=== PATIENT | female | born 1990 | race Caucasian/White ===

== ENCOUNTER 2019-04-09 06:01 | Day surgery (SDC) | payer OTHER, SELFPAY | END 2019-04-09 09:59 | disposition home or self-care (01) | PROVIDERS: Family Provider Family Medicine; Visit Provider Obstetrics & Gynecology | DX: Z30.2 Encounter for sterilization (principal); Z82.49 Family history of ischemic heart disease and other diseases of the circulatory system | CPT/HCPCS: 58662; 58670; 80048; 81003; 81025; 85025; 86850; 86900; 86901; 88112; 88302; 88304; 88305; J1100; J1885; J2405; J2704; J3010; J3490 ==

== ENCOUNTER → 2020-01-26 09:36 | Outpatient (BNVA) | payer OTHER, SELFPAY | PROVIDERS: Family Provider Family Medicine; PCP Family Medicine; Visit Provider Family Medicine | DX: Z20.828 Contact with and (suspected) exposure to other viral communicable diseases (principal) | CPT/HCPCS: 87635 ==

== ENCOUNTER → 2021-01-23 15:59 | Outpatient (BNVA) | payer OTHER, SELFPAY | PROVIDERS: Family Provider Family Medicine; PCP Family Medicine; Referring Provider Family Medicine; Visit Provider Specialist | DX: M67.40 Ganglion, unspecified site (principal) | CPT/HCPCS: 73110 ==

== ENCOUNTER → 2021-04-17 08:43 | Outpatient (BNVA) | payer OTHER, SELFPAY | PROVIDERS: Family Provider Family Medicine; PCP Family Medicine; Visit Provider Specialist | DX: S93.501A Unspecified sprain of right great toe, initial encounter (principal); W19.XXXA Unspecified fall, initial encounter | CPT/HCPCS: 73630 ==

== ENCOUNTER 2023-01-17 16:11 | Emergency (ER) | payer SELFPAY ==
[2023-01-17 16:35] VITALS: BP 133/100; PULSE 112; RESP 16; TEMP 37.2; O2SAT 100; BMI 24.5
[2023-01-17 16:44] VITALS: BP 133/100; PULSE 103; RESP 18; O2SAT 100
--- NOTE | 2023-01-17 16:49 | ED_ITS ---
Documented by User: Marcial Coon DO 01/18/23 06:32 HPI - Abdominal Pain General: Chief Complaint: Abdominal Pain Stated Complaint: low abd pain n/v Time Seen by Provider: 01/17/23 16:36 Source: patient Mode of arrival: ambulatory History of Present Illness: 32-year-old female presents emergency room with acute right lower quadrant abdominal pain that began 2 days ago progressively worsening. With nausea and vomiting. Patient reports a fever overnight. She has had dark stools she denies any hematochezia. No hematemesis or coffee-ground emesis she has not used any Pepto-Bismol does not take iron regularly. MD elicited complaint: abdominal pain Onset (ago): day(s) (2) Pain Consistency: constant Location: RLQ Severity: severe Quality: sharp Exacerbating factors: movement Relieving factors: rest Associated Symptoms: Reports anorexia, bloating, change in stool character, GI cramping, dysuria, melena, nausea, poor appetite and vomiting; Denies belching, change in bowel habits, chills, coffee ground emesis, constipation, diarrhea, dyspepsia, excessive flatus, fever(s), heartburn, hematochezia, hematuria, hematemesis, fecal incontinence, loose stools, syncope and other Review of Systems Const: Denies: fever(s) or chills Card: Denies: chest pain, palpitations, irregular heart rhythm or syncope Resp: Denies: dyspnea, productive cough or non-productive cough GI: Reports: abdominal pain, nausea, vomiting, bloating, GI cramping, change in stool character and melena; Denies: hematemesis, coffee ground emesis, heartburn, diarrhea, constipation, belching, excessive flatus, fecal incontinence, change in bowel habits, hematochezia or other : Reports: dysuria; Denies: urinary frequency, urinary urgency or hematuria Skin/Breast: Denies: rash or pruritus PFSH ED PFSH: Medical History Aftercare following surgery of the genitourinary system Patient is status post laparoscopic bilateral salpingectomy for permanent sterilization and a right ovarian cystectomy 2 weeks ago. Patient denies any complications. The benign pathology report was discussed. Ganglion cyst of dorsum of left wrist Surgical History H/O exploratory laparotomy (~2011) by Dr. Ferrer History of cholecystectomy (~2007) History of surgical removal of ganglion cyst (~2006) History of tubal ligation (~04/09/19) Laparoscopic bilateral salpingectomy fulguration and a laparoscopic right ovarian cystectomy by Dr. Andrew at [facility] [place] Previous section Family History Mother Hypertension Social History Smoking and tobacco status: never smoked Alcohol intake: current Alcohol intake frequency: holidays/special occasions only Substance/Drug Use: never Physical Exam Const: GENERAL APPEARANCE: cooperative and comfortable ORIENTATION/CONSC IOUSNESS: Yes awake, Yes oriented to person, Yes oriented to place and Yes oriented to time HENMT: COMMON NORMALS: normocephalic, atraumatic and hearing grossly normal bilaterally HEAD & SCALP: normocephalic and atraumatic Resp: COMMON NORMALS: normal respiratory effort, No retractions, No use of accessory muscles and clear to auscultation bilaterally AUSCULTATION: clear to auscultation bilaterally Cardio: COMMON NORMALS: regular rate, regular rhythm and No murmurs present (Cardio) RATE: regular rate RHYTHM: regular rhythm GI: COMMON NORMALS: No hepatosplenomegaly present AUSCULTATION: Yes Hypoactive bowel sounds present PALPATION: Yes Tenderness to palpation present (GI) Details: RLQ, Yes Guarding due to palpation present (GI) in the RLQ and Yes No hepatosplenomegaly present Extremity: COMMON NORMALS: normal to inspection, capillary refill normal, no clubbing, cyanosis or edema, no calf tenderness and no pedal edema Neuro: SENSORIUM/ORIENTATION: Yes oriented to person, Yes oriented to place and Yes oriented to time Skin: COMMON NORMALS: no rashes or lesions noted GENERAL SKIN EXAM: no rashes or lesions noted Course Vital Signs: Vital signs: Vital Signs Temperature 98.9 F 01/17/23 16:35 Pulse Rate 91 01/17/23 18:12 Respiratory Rate 16 01/17/23 19:37 Blood Pressure 126/89 01/17/23 19:37 Pulse Oximetry 98 01/17/23 18:12 Oxygen Delivery Me thod Room Air 01/17/23 18:12 MDM - Abdominal Pain Medical Decision Making Care signed out to Dr. Armendariz at change of shift. See final notes for diagnosis and disposition. Patient presents here with abdominal pain CT does show an ovarian cyst she has had history of cyst looks like a possible rupture from the cyst she has some slight free fluid she has a mild colitis as well her pains improved her white count is normal we [facility] along with pain medicine she is seen Dr. Andrew in the past she has follow-up with him and return if worsening she understands agrees to plan. She has no signs of ovarian torsion Lab Data 01/17/23 16:54 01/17/23 16:54 Labs/Radiology: Radiology Impressions Abdomen/Pelvis CT 01/17/23 17:21 IMPRESSION: 1. Prior cholecystectomy. 2. Partial urinary bladder distention with mild nonspecific wall thickening which may be related to incomplete distention. 3. Approximately 2.5 cm hypodense right ovarian cyst is suggested. Small follicular cyst appearance of the left ovary. 4. Submucosal edema and/or mild wall thickening of bowel, particularly of the colon. Fluid is seen within bowel. Consider underlying inflammatory change or infection, enterocolitis 5. Rmim-fe-mvyezyfa free fluid within the dependent pelvis. This may be related to leakage from ovarian cyst and/or associated with inflammatory bowel changes. Laboratory Results WBC 11.43 10^3/uL (3.29-11.43) 01/17/23 16:54 RBC 4.40 10^6/uL (3.85-5.65) 01/17/23 16:54 Hgb 13.00 g/dL (11.27-16.99) 01/17/23 16:54 Hct 39.0 % (36-47) 01/17/23 16:54 MCV 88.6 fl (85-98) 01/17/23 16:54 MCH 29.5 pg (27-33) 01/17/23 16:54 MCHC 33.3 g/dL (30-55) 01/17/23 16:54 RDW 12.4 % (12.1-15.1) 01/17/23 16:54 Plt Count 206 10^3/cmm (157-399) 01/17/23 16:54 MPV 9.3 fL (7.4-10.4) 01/17/23 16:54 Neut % (Auto) 80.2 % 01/17/23 16:54 Lymph % (Auto) 12.9 % 01/17/23 16:54 [place] % (Auto) 5.9 % 01/17/23 16:54 Eos % (Auto) 0.4 % 01/17/23 16:54 Baso % (Auto) 0.3 % 01/17/23 16:54 Neut # (Auto) 9.17 10^3/uL (1.8-7.7) H 01/17/23 16:54 Lymph # (Auto) 1.5 10^3/uL (0.8-4.8) 01/17/23 16:54 [place] # (Auto) 0.7 10^3/uL (0.2-0.9) 01/17/23 16:54 Eos # (Auto) 0.1 10^3/uL (0.0-0.8) 01/17/23 16:54 Baso # (Auto) 0.0 10^3/uL (0.0-0.1) 01/17/23 16:54 Nucleated RBC % (auto) 0 % 01/17/23 16:54 Nucleated RBCs # 0.0 /100WBC 01/17/23 16:54 Sodium 142 mmol/L (136-145) 01/17/23 16:54 Potassium 3.9 mmol/L (3.5-5.1) 01/17/23 16:54 Chloride 105 mmol/L (98-107) 01/17/23 16:54 Carbon Dioxide 27 mmol/L (22-29) 01/17/23 16:54 Anion Gap 13.9 (5-19) 01/17/23 16:54 BUN 8 mg/dL (6-20) 01/17/23 16:54 Creatinine 0.7 mg/dL (0.5-0.9) 01/17/23 16:54 GFR Calculation 97.0 mL/min (90-130) 01/17/23 16:54 Glucose 111 mg/dL (65-115) 01/17/23 16:54 Calculated Osmolality 293 mOsm/kg (285-295) 01/17/23 16:54 Calcium 8.8 mg/dL (8.5-10.5) 01/17/23 16:54 Total Bilirubin 0.2 mg/dL (0.15-1.2) 01/17/23 16:54 AST 16 U/L (0-32) 01/17/23 16:54 ALT 20 U/L (0-33) 01/17/23 16:54 Alkaline Phosphatase 75 U/L (35-105) 01/17/23 16:54 Total Protein 7.2 g/dL (6.6-8.7) 01/17/23 16:54 Albumin 4.0 g/dL (3.5-5.2) 01/17/23 16:54 Globulin 3.2 g/dL (1.3-4.6) 01/17/23 16:54 HCG, Qual Negative (Negative) 01/17/23 16:54 Urine Color Dark yellow (Yellow) 01/17/23 17:03 Urine Appearance Sl hazy (CLEAR) A 01/17/23 17:03 Urine pH 5 (5-7) 01/17/23 17:03 Ur Specific [place] 1.025 (1.005-1.030) 01/17/23 17:03 Urine Protein Neg (Negative) 01/17/23 17:03 Urine Glucose (UA) Norm (Normal) 01/17/23 17:03 Urine Ketones Negative (Negative) 01/17/23 17:03 Urine Blood Neg (Negative) 01/17/23 17:03 Urine Nitrate Negative (Negative) 01/17/23 17:03 Urine Bilirubin Neg (Negative) 01/17/23 17:03 Urine Urobilinogen Norm mg/dL (Negative) 01/17/23 17:03 Ur Leukocyte Esterase Negative (Negative) 01/17/23 17:03 Urine RBC 0-4 /hpf (0-2) H 01/17/23 17:03 Urine WBC 0-4 /hpf (0-5) H 01/17/23 17:03 Ur Squamous Epith Cells 10-15 /hpf (0-5) H 01/17/23 17:03 Amorphous Sediment Not Reportable 01/17/23 17:03 Urine Bacteria 1+ /hpf (NONE) H 01/17/23 17:03 Urine Mucus 2+ /hpf 01/17/23 17:03 Discharge Plan Discharge Patient Disposition: Home Clinical Impression: Abdominal pain, Colitis, Ovarian cyst Condition: Stable Prescriptions: New hydrocodone-acetaminophen 5-325 mg tablet 1 tab PO Q6H PRN (Reason: pain) Qty: 14 0RF metronidazole 500 mg tablet 500 mg PO Q8H 7 Days Qty: 21 0RF Cipro 500 mg tablet 500 mg PO BID Qty: 14 0RF ondansetron 4 mg tablet,disintegrating 4 mg PO Q6H PRN (Reason: nausea and vomiting) Qty: 14 0RF No Action (DME) Cam Walker See Rx Instructions .ROUTE .MEDSUPPLY Qty: 1 0RF Rx Instructions: As directed zolpidem [Ambien CR] 6.25 mg tablet,ext release multiphase 6.25 mg PO DAILY PRN venlafaxine 150 mg capsule,extended release 24hr 150 mg PO DAILY dextroamphetamine-amphetamine [Adderall] 5 mg tablet 5 mg PO DAILY Discharge Orders: Discharge ED (Routine); Ordered 01/17/23 Ordered By: Darvin Armendariz Referrals: Gareth Andrew MD [Physician] - 4-7 days Fredrick Gaona MD [Primary Care Provider] - 1-3 days Discharge Diet: Advance as tolerated Discharge Activity: Resume usual activity Patient Instructions: Ovarian Cyst (ED), Abdominal Pain (ED), Infectious Colitis (ED), Opioid Safety, Pain Management Coding Level of Care Code ED Water Quality Technician for Chg Fwd Documented by User: Darvin Armendariz MD 01/17/23 19:43 HPI - Abdominal Pain General: Chief Complaint: Abdominal Pain Stated Complaint: low abd pain n/v Time Seen by Provider: 01/17/23 16:36 PFSH ED PFSH: Medical History Aftercare following surgery of the genitourinary system Patient is status post laparoscopic bilateral salpingectomy for permanent sterilization and a right ovarian cystectomy 2 weeks ago. Patient denies any complications. The benign pathology report was discussed. Ganglion cyst of dorsum of left wrist Surgical History H/O exploratory laparotomy (~2011) by Dr. Ferrer History of cholecystectomy (~2007) History of surgical removal of ganglion cyst (~2006) History of tubal ligation (~04/09/19) Laparoscopic bilateral salpingectomy fulguration and a laparoscopic right ovarian cystectomy by Dr. Andrew at [facility] [place] Previous section Family History Mother Hypertension Social History Smoking and tobacco status: never smoked Alcohol intake: current Alcohol intake frequency: holidays/special occasions only Substance/Drug Use: never Course Vital Signs: Vital signs: Vital Signs Temperature 98.9 F 01/17/23 16:35 Pulse Rate 91 01/17/23 18:12 Respiratory Rate 16 01/17/23 19:37 Blood Pressure 126/89 01/17/23 19:37 Pulse Oximetry 98 01/17/23 18:12 Oxygen Delivery Me thod Room Air 01/17/23 18:12 MDM - Abdominal Pain Medical Decision Making Patient presents here with abdominal pain CT does show an ovarian cyst she has had history of cyst looks like a possible rupture from the cyst she has some slight free fluid she has a mild colitis as well her pains improved her white count is normal we will place her on Cipro Flagyl along with pain medicine she is seen Dr. Andrew in the past she has follow-up with him and return if worsening she understands agrees to plan. She has no signs of ovarian torsion Medical Records I reviewed the patient's medical records. Lab Data I reviewed the patient's lab results. 01/17/23 16:54 01/17/23 16:54 Labs/Radiology: Radiology Impressions Abdomen/Pelvis CT 01/17/23 17:21 IMPRESSION: 1. Prior cholecystectomy. 2. Partial urinary bladder distention with mild nonspecific wall thickening which may be related to incomplete distention. 3. Approximately 2.5 cm hypodense right ovarian cyst is suggested. Small follicular cyst appearance of the left ovary. 4. Submucosal edema and/or mild wall thickening of bowel, particularly of the colon. Fluid is seen within bowel. Consider underlying inflammatory change or infection, enterocolitis 5. Dcrn-rv-espirduh free fluid within the dependent pelvis. This may be related to leakage from ovarian cyst and/or associated with inflammatory bowel changes. Laboratory Results WBC 11.43 10^3/uL (3.29-11.43) 01/17/23 16:54 RBC 4.40 10^6/uL (3.85-5.65) 01/17/23 16:54 Hgb 13.00 g/dL (11.27-16.99) 01/17/23 16:54 Hct 39.0 % (36-47) 01/17/23 16:54 MCV 88.6 fl (85-98) 01/17/23 16:54 MCH 29.5 pg (27-33) 01/17/23 16:54 MCHC 33.3 g/dL (30-55) 01/17/23 16:54 RDW 12.4 % (12.1-15.1) 01/17/23 16:54 Plt Count 206 10^3/cmm (157-399) 01/17/23 16:54 MPV 9.3 fL (7.4-10.4) 01/17/23 16:54 Neut % (Auto) 80.2 % 01/17/23 16:54 Lymph % (Auto) 12.9 % 01/17/23 16:54 [place] % (Auto) 5.9 % 01/17/23 16:54 Eos % (Auto) 0.4 % 01/17/23 16:54 Baso % (Auto) 0.3 % 01/17/23 16:54 Neut # (Auto) 9.17 10^3/uL (1.8-7.7) H 01/17/23 16:54 Lymph # (Auto) 1.5 10^3/uL (0.8-4.8) 01/17/23 16:54 [place] # (Auto) 0.7 10^3/uL (0.2-0.9) 01/17/23 16:54 Eos # (Auto) 0.1 10^3/uL (0.0-0.8) 01/17/23 16:54 Baso # (Auto) 0.0 10^3/uL (0.0-0.1) 01/17/23 16:54 Nucleated RBC % (auto) 0 % 01/17/23 16:54 Nucleated RBCs # 0.0 /100WBC 01/17/23 16:54 Sodium 142 mmol/L (136-145) 01/17/23 16:54 Potassium 3.9 mmol/L (3.5-5.1) 01/17/23 16:54 Chloride 105 mmol/L (98-107) 01/17/23 16:54 Carbon Dioxide 27 mmol/L (22-29) 01/17/23 16:54 Anion Gap 13.9 (5-19) 01/17/23 16:54 BUN 8 mg/dL (6-20) 01/17/23 16:54 Creatinine 0.7 mg/dL (0.5-0.9) 01/17/23 16:54 GFR Calculation 97.0 mL/min (90-130) 01/17/23 16:54 Glucose 111 mg/dL (65-115) 01/17/23 16:54 Calculated Osmolality 293 mOsm/kg (285-295) 01/17/23 16:54 Calcium 8.8 mg/dL (8.5-10.5) 01/17/23 16:54 Total Bilirubin 0.2 mg/dL (0.15-1.2) 01/17/23 16:54 AST 16 U/L (0-32) 01/17/23 16:54 ALT 20 U/L (0-33) 01/17/23 16:54 Alkaline Phosphatase 75 U/L (35-105) 01/17/23 16:54 Total Protein 7.2 g/dL (6.6-8.7) 01/17/23 16:54 Albumin 4.0 g/dL (3.5-5.2) 01/17/23 16:54 Globulin 3.2 g/dL (1.3-4.6) 01/17/23 16:54 HCG, Qual Negative (Negative) 01/17/23 16:54 Urine Color Dark yellow (Yellow) 01/17/23 17:03 Urine Appearance Sl hazy (CLEAR) A 01/17/23 17:03 Urine pH 5 (5-7) 01/17/23 17:03 Ur Specific [place] 1.025 (1.005-1.030) 01/17/23 17:03 Urine Protein Neg (Negative) 01/17/23 17:03 Urine Glucose (UA) Norm (Normal) 01/17/23 17:03 Urine Ketones Negative (Negative) 01/17/23 17:03 Urine Blood Neg (Negative) 01/17/23 17:03 Urine Nitrate Negative (Negative) 01/17/23 17:03 Urine Bilirubin Neg (Negative) 01/17/23 17:03 Urine Urobilinogen Norm mg/dL (Negative) 01/17/23 17:03 Ur Leukocyte Esterase Negative (Negative) 01/17/23 17:03 Urine RBC 0-4 /hpf (0-2) H 01/17/23 17:03 Urine WBC 0-4 /hpf (0-5) H 01/17/23 17:03 Ur Squamous Epith Cells 10-15 /hpf (0-5) H 01/17/23 17:03 Amorphous Sediment Not Reportable 01/17/23 17:03 Urine Bacteria 1+ /hpf (NONE) H 01/17/23 17:03 Urine Mucus 2+ /hpf 01/17/23 17:03 All radiology interpretation(s) finalized by discharge Discharge Plan Discharge Patient Disposition: Home Clinical Impression: Abdominal pain, Colitis, Ovarian cyst Condition: Stable Prescriptions: New hydrocodone-acetaminophen 5-325 mg tablet 1 tab PO Q6H PRN (Reason: pain) Qty: 14 0RF metronidazole 500 mg tablet 500 mg PO Q8H 7 Days Qty: 21 0RF Cipro 500 mg tablet 500 mg PO BID Qty: 14 0RF ondansetron 4 mg tablet,disintegrating 4 mg PO Q6H PRN (Reason: nausea and vomiting) Qty: 14 0RF No Action (DME) Cam Walker See Rx Instructions .ROUTE .MEDSUPPLY Qty: 1 0RF Rx Instructions: As directed zolpidem [Ambien CR] 6.25 mg tablet,ext release multiphase 6.25 mg PO DAILY PRN venlafaxine 150 mg capsule,extended release 24hr 150 mg PO DAILY dextroamphetamine-amphetamine [Adderall] 5 mg tablet 5 mg PO DAILY Discharge Orders: Discharge ED (Routine); Ordered 01/17/23 Ordered By: Darvin Armendariz Referrals: Gareth Andrew MD [Physician] - 4-7 days Roylance,Fredrick F, MD [Primary Care Provider] - 1-3 days Discharge Diet: Advance as tolerated Discharge Activity: Resume usual activity Patient Instructions: Ovarian Cyst (ED), Abdominal Pain (ED), Infectious Colitis (ED), Opioid Safety, Pain Management Coding Level of Care Code ED Water Quality Technician for Jalen Khanna
[2023-01-17 17:04] LABS: Basophils % 0.3 %; Eosinophils # 0.1 10^3/uL (0.0-0.8); Eosinophils % 0.4 %; Lymphocytes # 1.5 10^3/uL (0.8-4.8); Lymphocytes % 12.9 %; Mean Corpuscular HGB Conc 33.3 g/dL (30-55); Mean Corpuscular Hemoglobin 29.5 pg (27-33); Mean Corpuscular Volume 88.6 fl (85-98); Mean Platelet Volume 9.3 fL (7.4-10.4); Monocytes # 0.7 10^3/uL (0.2-0.9); Monocytes % 5.9 %; Neutrophils # 9.17 10^3/uL (1.8-7.7); Neutrophils % 80.2 %; Nucleated Red Blood Cells % 0 %; Platelet Count 206 10^3/cmm (157-399); Red Cell Distribution Width 12.4 % (12.1-15.1); White Blood Count 11.43 10^3/uL (3.29-11.43)
[2023-01-17 17:08] VITALS: RESP 18; O2SAT 100
[2023-01-17] MEDS: ondansetron 2 mg/ML SDV 2 mL 4 MG IVP (17:08)
[2023-01-17] MEDS: sodium chloride 0.9% 1,000 ML 999 ML IV (17:08)
[2023-01-17] MEDS: morphine 4 mg/mL SDV 1 mL IVP (17:08)
[2023-01-17 17:11] VITALS: BP 125/93; PULSE 98; RESP 18; O2SAT 100
[2023-01-17 17:18] LABS: HCG, Serum Qual Negative (Negative)
[2023-01-17 17:19] LABS: Alanine Aminotransferase 20 U/L (0-33); Alkaline Phosphatase 75 U/L (35-105); Anion Gap 13.9 (5-19); Aspartate Amino Transferase 16 U/L (0-32); Blood Urea Nitrogen 8 mg/dL (6-20); Calcium 8.8 mg/dL (8.5-10.5); Carbon Dioxide 27 mmol/L (22-29); Chloride 105 mmol/L (98-107); Globulin 3.2 g/dL (1.3-4.6); Glucose 111 mg/dL (65-115); Osmolality Calculated 293 mOsm/kg (285-295); Potassium 3.9 mmol/L (3.5-5.1); Sodium 142 mmol/L (136-145); Total Bilirubin 0.2 mg/dL (0.15-1.2); Total Protein 7.2 g/dL (6.6-8.7)
--- NOTE | 2023-01-17 17:21 | CTR_ITS ---
PROCEDURE INFORMATION: Exam: CT Abdomen And Pelvis With Contrast Exam date and time: 01/17/2023 5:38 PM Age: 32 years old Clinical indication: Abdominal pain; Generalized; Prior surgery; Surgery date: 6+ months; Surgery type: Fouzia, tubal, ; Additional info: Abd pain TECHNIQUE: Imaging protocol: Computed tomography of the abdomen and pelvis with contrast. Radiation optimization: All CT scans at this facility use at least one of these dose optimization techniques: automated exposure control; mA and/or kV adjustment per patient size (includes targeted exams where dose is matched to clinical indication); or iterative reconstruction. Contrast material: OMNI 350; Contrast volume: 100 ml; Contrast route: INTRAVENOUS (IV); REPORTING DATA: Count of CT and Cardiac NM exams in prior 12 months: This patient has received 0 known CTs and 0 known cardiac nuclear medicine studies in the 12 months prior to the current study. COMPARISON: ES surgery / GI images 04/09/2019 7:47 AM RADIATION DOSE METRICS: Total DLP (mGy-cm): 436 FINDINGS: Lungs: No infiltrate or effusion is seen within the visualized lung bases. Liver: Normal. No mass. Gallbladder and bile ducts: Prior cholecystectomy. Slight biliary prominence post cholecystectomy. Pancreas: Normal. No ductal dilation. Spleen: Normal. No splenomegaly. Adrenal glands: Normal. No mass. Kidneys and ureters: Normal. No hydronephrosis. Stomach and bowel: Fluid is seen within stomach and small bowel, as well as a portion of the colon. There is suggestion of submucosal edema and/or mild wall thickening of bowel, particularly involving the colon. No bowel obstruction. Appendix: The appendix is visualized. There is an appendicolith. No inflammatory changes are seen to indicate appendicitis. Intraperitoneal space: No free air. No ascites within the abdomen. Vasculature: Unremarkable. No abdominal aortic aneurysm. Lymph nodes: Unremarkable. No enlarged lymph nodes. Urinary bladder: Partial urinary bladder distention with mild nonspecific wall thickening. Reproductive: Approximately 2.5 cm hypodense right ovarian cyst is seen. Small follicular cysts noted of the left ovary. Jbpa-xb-wwllknqu free fluid within the cul-de-sac. Bones/joints: No acute osseous abnormality. Soft tissues: A very small periumbilical hernia fat. CT/CT abdomen pelvis w con* [id number] IMPRESSION: 1. Prior cholecystectomy. 2. Partial urinary bladder distention with mild nonspecific wall thickening which may be related to incomplete distention. 3. Approximately 2.5 cm hypodense right ovarian cyst is suggested. Small follicular cyst appearance of the left ovary. 4. Submucosal edema and/or mild wall thickening of bowel, particularly of the colon. Fluid is seen within bowel. Consider underlying inflammatory change or infection, enterocolitis 5. Dulw-xu-nfggrbcm free fluid within the dependent pelvis. This may be related to leakage from ovarian cyst and/or associated with inflammatory bowel changes.
[2023-01-17 17:26] LABS: Glucose Urine UA Norm (Normal); Ketones Urine Negative (Negative); Protein Urine Neg (Negative); Specific Gravity, Urine 1.025 (1.005-1.030); Urine Appearance SL Hazy (CLEAR); Urine Color Dark Yellow (Yellow); pH Urine 5 (5-7)
[2023-01-17 17:27] LABS: Add Urine Microscopic? YES; Bilirubin Urine Neg (Negative); Blood Urine Neg (Negative); Leukocyte Esterase Urine Negative (Negative); Nitrate Urine Negative (Negative); Urobilinogen Urine Norm (Negative)
[2023-01-17 17:30] LABS: RBC Urine 0-4 /hpf (0-2); WBC Urine 0-4 /hpf (0-5)
[2023-01-17 17:31] LABS: Add Urine Culture? No; Bacteria Urine 1+ /hpf; Mucus Urine 2+ /hpf
[2023-01-17] MEDS: iohexol 350 mg/mL 500 mL Btl (per mL) IV (17:51)
[2023-01-17 18:12] VITALS: BP 124/93; PULSE 91; RESP 18; O2SAT 98
[2023-01-17 19:37] VITALS: BP 126/89; RESP 16
== END 2023-01-17 19:38 | disposition home or self-care (01) ==
PROVIDERS: Family Medicine; Emergency Provider Emergency Medicine; Family Provider Family Medicine; PCP Family Medicine
DX: K52.9 Noninfective gastroenteritis and colitis, unspecified (principal); N83.201 Unspecified ovarian cyst, right side
CPT/HCPCS: 74177; 80053; 81001; 84703; 85025; 96374; 96375; 99285; J2270; J2405; J7030; Q9967

== ENCOUNTER 2025-01-10 08:12 | Emergency (ER) | payer OTHER, SELFPAY ==
[2025-01-10 08:16] VITALS: BP 131/99; PULSE 92; RESP 14; TEMP 36.7; O2SAT 100; BMI 25.6
--- NOTE | 2025-01-10 08:26 | CTR_ITS ---
PROCEDURE INFORMATION: Exam: CT Head Without Contrast Exam date and time: 01/10/2025 8:41 AM Age: 34 years old Clinical indication: Visual disturbance; Additional info: Pupil dilatation TECHNIQUE: Imaging protocol: Computed tomography of the head without contrast. Radiation optimization: All CT scans at this facility use at least one of these dose optimization techniques: automated exposure control; mA and/or kV adjustment per patient size (includes targeted exams where dose is matched to clinical indication); or iterative reconstruction. COMPARISON: No relevant prior studies available. RADIATION DOSE METRICS: Total DLP (mGy-cm): 954.08 FINDINGS: Brain: Normal. No hemorrhage. Unremarkable white matter. No mass effect. Cerebral ventricles: No ventriculomegaly. Paranasal sinuses: Visualized sinuses are unremarkable. No fluid levels. Mastoid air cells: Visualized mastoid air cells are well aerated. Bones: Unremarkable. No acute fracture. Soft tissues: Unremarkable. CT/CT head wo con* [id number] IMPRESSION: No acute intracranial abnormality.
--- NOTE | 2025-01-10 08:34 | ED_ITS ---
HPI - Eye Problem General: Chief complaint: Eye Problems Stated complaint: right pupil is diolated and the other is not Time Seen by Provider: 01/10/25 08:20 Source: patient Mode of arrival: ambulatory Limitations: no limitations History of Present Illness: 34-year-old female who states that today she noticed she had pupil dilation to her right eye. She states that someone else had noticed that she had no other symptoms she denies any vision changes slurred speech or weakness. She denies any headache. 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 Associated symptoms: Denies fever(s), headache(s) or neck pain Related Data Home Medications ?Medication ?Instructions ?Recorded ?Confirmed zolpidem 6.25 mg tablet,extended 6.25 mg PO DAILY PRN 05/18/19 04/17/21 release,multiphase (Ambien CR) dextroamphetamine-amphetamine 5 mg 5 mg PO DAILY 01/2304/17/21 tablet (Adderall) venlafaxine 150 mg 150 mg PO DAILY 01/23/21 capsule,extended release 24 hr Previous Rx's ?Medication ?Instructions ?Recorded Cam Walker #1 ea 04/17/21 ciprofloxacin HCl 500 mg tablet 500 mg PO BID #14 tabs 01/17/23 (Cipro) hydrocodone 5 mg-acetaminophen 325 1 tab PO Q6H PRN pa in #14 tabs 01/17/23 mg tablet ondansetron 4 mg disintegrating 4 mg PO Q6H PRN nausea and 01/17/23 tablet vomiting #14 tabs Allergies Allergy/AdvReac Type Severity Reaction Status Date / Time No Known Allergies Allergy Verified 01/10/25 08:21 Review of Systems Const: Denies: fever(s), chills, body aches or change in appetite Eyes: Denies: blurry vision or eye discomfort ENMT: Denies: throat pain or dental pain Card: Denies: chest pain Resp: Denies: dyspnea GI: Denies: abdominal pain Musc: Denies: neck pain or back pain Skin/Breast: Denies: rash Neuro: Denies: headache(s) PFSH ED PFSH: Medical History Ganglion cyst of dorsum of left wrist Aftercare following surgery of the genitourinary system Patient is status post laparoscopic bilateral salpingectomy for permanent sterilization and a right ovarian cystectomy 2 weeks ago. Patient denies any complications. The benign pathology report was discussed. Surgical History History of tubal ligation (~04/09/19) Laparoscopic bilateral salpingectomy fulguration and a laparoscopic right ovarian cystectomy by Dr. Andrew at [facility] [place], [place] H/O exploratory laparotomy (~2011) by Dr. Ferrer History of cholecystectomy (~2007) History of surgical removal of ganglion cyst (~2006) Previous section Family History Mother Hypertension Social History Smoking and tobacco/nicotine status: never used tobacco/nicotine Alcohol intake: current Alcohol intake frequency: holidays/special occasions only Substance/Drug Use: never Physical Exam Const: COMMON NORMALS: no acute distress, patient oriented x3 and healthy appearing HENMT: COMMON NORMALS: normocephalic and atraumatic HEAD & SCALP: normocephalic and atraumatic Eye: COMMON NORMALS: EOMs intact bilaterally OTHER: Right pupil is dilated does constrict to light Neck/C-Spine: COMMON NORMALS: full ROM and supple Chest: COMMONS NORMALS: normal inspection of the chest Resp: COMMON NORMALS: normal respiratory effort Cardio: COMMON NORMALS: regular rate, regular rhythm and No murmurs present (Cardio) RATE: regular rate RHYTHM: regular rhythm Extremity: COMMON NORMALS: normal to inspection and full ROM Neuro: COMMON NORMALS: patient oriented x3, moves all extremities and no focal motor deficits CRANIAL NERVES: Yes CN normal except as noted SPEECH: speech normal MOTOR EXAM: 5/5 motor strength present throughout Psych: COMMON NORMALS: mental status grossly normal, Normal thought process present and cooperative THOUGHT PROCESS: Normal thought process present Skin: COMMON NORMALS: no rashes or lesions noted and no wounds GENERAL SKIN EXAM: no rashes or lesions noted Course Vital Signs: Vital signs: Vital Signs Temperature 98.1 F 01/10/25 08:16 Pulse Rate 92 01/10/25 08:16 Respiratory Rate 14 01/10/25 08:16 Blood Pressure 131/99 01/10/25 08:16 Pulse Oximetry 100 01/10/25 08:16 MDM - Eye Problem Medical Decision Making Patient presents for dilation to her right pupil that is likely from a lidocaine patch and then her touching her eyes she has no other signs of stroke here head CT is normal no signs of acute angle glaucoma. I did go over this with her she is stable for discharge she is follow-up with PCP return if any worsening symptoms she understands agrees to plan. Medical Records I reviewed the patient's medical records. Lab Data Radiology Impressions Head CT 01/10/25 08:26 IMPRESSION: No acute intracranial abnormality. All radiology interpretation(s) finalized by discharge Discharge Plan Discharge Patient Disposition: Home Clinical Impression: Dilated pupil Condition: Stable Prescriptions: No Action (DME) Cam Walker See Rx Instructions .ROUTE .MEDSUPPLY Qty: 1 0RF Rx Instructions: As directed zolpidem [Ambien CR] 6.25 mg tablet,ext release multiphase 6.25 mg PO DAILY PRN venlafaxine 150 mg capsule,extended release 24hr 150 mg PO DAILY dextroamphetamine-amphetamine [Adderall] 5 mg tablet 5 mg PO DAILY hydrocodone-acetaminophen 5-325 mg tablet 1 tab PO Q6H PRN (Reason: pain) Qty: 14 0RF Cipro 500 mg tablet 500 mg PO BID Qty: 14 0RF ondansetron 4 mg tablet,disintegrating 4 mg PO Q6H PRN (Reason: nausea and vomiting) Qty: 14 0RF Discharge Orders: Discharge ED (Routine); Ordered 01/10/25 Ordered By: Darvin Armendariz Referrals: Fredrick Gaona MD [Primary Care Provider, [facility]] - 4-7 days Discharge Diet: Advance as tolerated Discharge Activity: Resume usual activity Activity Restrictions/Additional Instructions: Patient presents for pupil dilation changes no signs of a stroke is likely due to the lidocaine patch here stable for discharge follow-up with PCP return if any worsening symptoms. 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
[2025-01-10 09:36] VITALS: BP 111/88; PULSE 87; O2SAT 98
== END 2025-01-10 09:37 | disposition home or self-care (01) ==
PROVIDERS: Emergency Provider Emergency Medicine; PCP Family Medicine
DX: H57.04 Mydriasis (principal)
CPT/HCPCS: 70450; 99284